=== PATIENT | female | born 1960 | race Caucasian/White ===

== ENCOUNTER → 2019-08-24 11:21 | Outpatient (CLI) | payer BC, SELFPAY ==
--- NOTE | ~2019-08-24 | XR_ITS ---
EXAMINATION: XR chest 2V EXAM DATE: 08/24/2019 11:34 INDICATION: Cough. TECHNIQUE: Frontal and lateral projections of the chest obtained and reviewed. There is no prior sunni dy for comparison. FINDINGS: The lungs are clear. There are no pleural effusions. The cardiomediastinal silhouette is within normal limits. There is no pneumothorax suspected. The bones and soft tissues are unremarkab le. IMPRESSION: No acute cardiopulmonary findings. Reviewed, dictated and finalized at location B. [employer] QUALITY METHODS SPECIALIST
== END ==
PROVIDERS: PCP Family Medicine; Visit Provider Nurse Practitioner Family
DX: R05 Cough (principal)
CPT/HCPCS: 71046

== ENCOUNTER 2019-09-20 17:28 | Emergency (ER) | payer BC, SELFPAY ==
--- NOTE | ~2019-09-20 | XR_ITS ---
EXAMINATION: XR foot LT min 3V EXAM DATE: 09/20/2019 17:52 INDICATION: No known recent injury provided at this time. Pain of the left foot, metatarsal. TECHNIQUE: Left foot dorsoplantar, lateral and oblique projections obtained and reviewed. There is n o prior study for comparison. FINDINGS: Left metatarsal bones unremarkable. No periosteal reaction or band of sclerosis to sugges t subacute stress fracture. There are no acute fractures or dislocations identified. There is no s ubcutaneous gas. The soft tissue is unremarkable. There are no radiopaque foreign bodies. There i s mild first MTP, polyarticular interphalangeal primary osteoarthritis. IMPRESSION: 1. XR foot LT min 3V exam without acute osseous findings. 2. Mild polyarticular osteoarthritis. Reviewed, dictated and finalized at location A.
[2019-09-20 17:35] VITALS: BP 151/64; PULSE 63; RESP 20; TEMP 37.2; O2SAT 99
--- NOTE | 2019-09-20 18:22 | ED.LOWEXIN ---
HPI - Extremity Injury (Lower) General Chief Complaint: Extremity Injury, Lower Stated Complaint: L/top foot pain/swollen Source: patient Mode of arrival: ambulatory Limitations: no limitations History of Present Illness HPI Narrative: Patient is a 59-year-old female who presents with left foot pain x1 week. She reports mild swelling, denies redness, denies known injury. She denies taking szis-sbg-byvfrdz medications for pain at this time. Reports increased pain over the past few days. MD complaint: other (Foot pain) Related Data Home Medications Medication Instructions Recorded Confirmed amlodipine 10 mg-benazepril 40 mg 1 cap PO DAILY 08/24/19 09/20/19 capsule calcium carbonate 600 mg(1,500 1 tablet PO DAILY 08/24/19 09/20/19 mg)-vitamin D3 800 unit chewable tablet hydrochlorothiazide 12.5 mg tablet 12.5 mg PO DAILY 08/24/19 09/20/19 levothyroxine 125 mcg tablet 125 mcg PO DAILY 08/24/19 09/20/19 pywcipwzcaik-srgeslos-ykiszxi-folic 1 tablet PO DAILY 08/24/19 09/20/19 acid 400 mcg-vit K1 20 mcg tablet rosuvastatin 10 mg tablet 10 mg PO DAILY 08/24/19 09/20/19 Allergies Allergy/AdvReac Type Severity Reaction Status Date / Time azithromycin AdvReac Intermediate GI pain Verified 09/20/19 17:40 Review of Systems Review of Systems: Narrative: CONSTITUTIONAL: Denies fever, chills, or sweats. EYES: Denies visual changes, redness, or discharge. ENT: Denies rhinorrhea, congestion, sore throat, or otalgia. CARDIOVASCULAR: Denies chest pain, palpitations, or edema. RESPIRATORY: Denies cough or dyspnea. GASTROINTESTINAL: Denies abdominal pain, nausea, vomiting, or diarrhea. GENITOURINARY: Denies dysuria or hematuria. SKIN: Denies rash or itching. MUSCULOSKELETAL: Denies back pain, reports left foot pain NEUROLOGIC: Denies headache, numbness, dizziness, or weakness. PSYCHIATRIC: Denies anxiety or depression. [facility] Past Medical History Medical History (Updated 09/20/19 @ 18:29 by DELORES Odonnell) Depression GERD (gastroesophageal reflux disease) HTN (hypertension) Hypercholesterolemia Hypothyroidism Sleep apnea Family History Family History Sibling Cerebrovascular accident Diabetes mellitus Mother Diabetes mellitus Hypertension Patient's mother is in good health, Onset Age: 83 Social History Social History Smoking status: Never smoker Alcohol intake: current Substance use: never Substance use type: does not use Exam Narrative: Exam Narrative: GENERAL: Well-appearing, well-nourished, and in no acute distress. HEAD: Normocephalic, atraumatic. EYES: EOMI. No redness or drainage. Conjunctiva are normal. ENT: Mucous membranes pink and moist. Nares clear. No rhinorrhea. TMs normal bilaterally. Throat normal. Uvula midline. NECK: AROM. Supple. No lymphadenopathy. CHEST: No respiratory distress. Clear to auscultation. HEART: Regular rate and rhythm. No murmur appreciated. Normal peripheral pulses. GI: Soft, nontender without rebound, or guarding. No distention. Bowel sounds normal in all quadrants. MUSCULOSKELETAL: No bony tenderness. EXTREMITIES: Normal range of motion. Mild edema to left foot and toes, point tenderness at base of toes. Osteoarthritis noted on x-ray SKIN: Warm, dry, no rash. NEURO: No focal deficits. Alert and oriented x3. Gait steady. PSYCH: Normal affect. No signs of depression or anxiety. Course Vital Signs Vital signs: Vital Signs Temperature 37.2 C 09/20/19 17:35 Pulse Rate 63 09/20/19 17:35 Respiratory Rate 20 09/20/19 17:35 Blood Pressure 151/64 H 09/20/19 17:35 Pulse Oximetry 99 09/20/19 17:35 Temperature 37.2 C 09/20/19 17:35 Pulse Rate 63 09/20/19 17:35 Respiratory Rate 20 09/20/19 17:35 Blood Pressure 151/64 H 09/20/19 17:35 Pulse Oximetry 99 09/20/19 17:35 MDM - Extremity Injury (Lo
== END 2019-09-20 18:30 | disposition home or self-care (01) ==
PROVIDERS: Emergency Provider Nurse Practitioner; PCP Family Medicine
DX: M19.072 Primary osteoarthritis, left ankle and foot (principal); F32.9 Major depressive disorder, single episode, unspecified; K21.9 Gastro-esophageal reflux disease without esophagitis; I10 Essential (primary) hypertension; E78.00 Pure hypercholesterolemia, unspecified; G47.30 Sleep apnea, unspecified
CPT/HCPCS: 73630; 99213; G0463

== ENCOUNTER → 2020-09-06 17:52 | Outpatient (CLI) | payer BC, SELFPAY ==
--- NOTE | ~2020-09-06 | DEXA_ITS ---
Bone Density Report Name: Robyn No Age: 60 Sex: Female Ethnicity: White Date of : 1960 Indication: postmenopausal; screening for osteoporosis; parental hip fracture; Referring Provider: Kathy Khan Study: Bone densitometry was performed. Exam Date: September 06, 2020 Accession number: [id number] Bone Density: Region BMD T-score Z-score Classification AP Spine (L1-L4) 1.032 -0.1 1.4 Normal Femoral Neck (Left) 0.756 -0.8 0.5 Normal Total Hip (Left) 0.905 -0.3 0.8 Normal Femoral Neck (Right) 0.689 -1.4 -0.1 Osteopenia Total Hip (Right) 0.881 -0.5 0.6 Normal Total Hip Mean 0.893 -0.4 0.7 Normal World Health Organization criteria for BMD impression classify patients as: Normal (T-score at or above -1.0), Osteopenia (T-score between -1.0 and -2.5), or Osteoporosis (T-score at or below -2.5). 10-year Fracture Risk(1): Major Osteoporotic Fracture 15% Hip Fracture 0.7% Reported Risk Factors: [place] (), Neck BMD=0.689, BMI=34.8, parental fracture (1) FRAX(R) Version 3.08. Fracture probability calculated for an untreated patient. Fracture probability may be lower if the patient has received treatment. Clinical Information Provided by Patient: Parent has had a hip fracture Has used the following medications: Calcium, SYNTHROID, MTV Patient maximum height was 63.5 Menopause Age: 45 No regular weight bearing exercise Does not regularly consume dairy products Drinks caffeinated beverages Onset of menses at age 12 Number of children 0 Impression: The patient has low bone mass, based on the Right Femoral Neck T-score. The patient has an estimated ten-year risk of hip fracture of 0.7% and an estimated ten-year risk of major fracture of 15%, based on the WHO FRAX algorithm. The patient has risk factors, including: parental hip fracture. Discussion: BONE DENSITY IS LOW AT ONE OR MORE SKELETAL SITES. This patient's lowest T-score is low at one or more skeletal sites. It meets the World Health Organization's (WHO) criteria for ?low bone mass? (T-score between -1.0 and -2.5). The patient's 10-year risk of fracture as calculated by FRAX is less than the threshold where pharmacological therapy is recommended by the National Osteoporosis Foundation (NOF). However, all treatment decisions require clinical judgment and consideration of individual patient factors, including patient preferences, comorbidities, previous drug use, risk factors not captured in the FRAX model (e.g., frailty, falls, vitamin D deficiency, increased bone turnover, interval significant decline in bone density) and possible under or overestimation of fracture risk by FRAX. The patient should follow a healthful lifestyle (good nutrition with adequate calcium and vitamin D, and appropriate weight-bearing exercise).
--- NOTE | ~2020-09-06 | MM_ITS ---
EXAMINATION: MM screening [facility] BI w tae HISTORY: Screening mammogram TECHNIQUE: Craniocaudal and mediolateral oblique 3-D tomosynthesis images were obtained and synthetic 2-D images were generated. CAD analysis was submitted and interpreted. COMPARISON: 05/03/2019, 01/02/2018 BREAST PARENCHYMAL COMPOSITION: The breasts are almost entirely fatty. FINDINGS: There is no evidence of suspicious mass, calcification, or architectural distortion to sugg est malignancy in either breast. There has been no suspicious interval change. IMPRESSION: 1. No mammographic evidence of malignancy. 2. Recommend routine screening mammography in one year. BI-RADS Category 1: Negative Reviewed, dictated and finalized at location A. ICAL LANGUAGES PROFESSOR
== END ==
PROVIDERS: Visit Provider Physician Assistant
DX: Z78.0 Asymptomatic menopausal state (principal); Z12.31 Encounter for screening mammogram for malignant neoplasm of breast; M85.851 Other specified disorders of bone density and structure, right thigh
CPT/HCPCS: 77063; 77067; 77080

== ENCOUNTER 2022-03-01 15:24 | Inpatient (IN) | payer BC, SELFPAY ==
--- NOTE | ~2022-03-01 | CT_ITS ---
EXAMINATION: CT abdomen pelvis w con DATE: 03/01/2022 18:25 INDICATION: Low abdominal pain. TECHNIQUE: Computed tomography (CT) of the abdomen and pelvis was performed with 100 mL Omnipaque 350 intravenous contrast. Automated exposure control and iterative reconstruction technique were employe d. The dose-length product was 790.75 mGy-cm. COMPARISON: None. FINDINGS: The visualized portions of the lung bases demonstrate mild atelectasis. No pleural effusion . The heart size is normal. No pericardial effusion. There is a small sliding hiatal hernia. The live r, gallbladder, spleen, pancreas, adrenal glands, and kidneys are normal. There is wall thickening of splenic flexure and descending colon with adjacent fat stranding, consistent with colitis. The appen liang is normal. There are no dilated loops of bowel. There is no significant stenosis of celiac axis, superior mesenteric artery, or the renal arteries. 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 There are no pathologically enlarged lymph nodes. There is no free in traperitoneal fluid. There is severe lumbar spondylosis. IMPRESSION: 1. Colitis involving the splenic flexure and descending colon, which may be ischemic colitis or infec tious colitis. Reviewed, dictated and finalized at location A. IMPRESSION: 1. Colitis involving the splenic flexure and descending colon, which may be isc hemic colitis or infectious colitis.
[2022-03-01 15:27] VITALS: BP 152/80; PULSE 76; RESP 18; TEMP 37; O2SAT 97
[2022-03-01 16:03] LABS: Basophils Absolute Auto 0.1 K/mm3 (0.0-0.1); Basophils Percent Auto 0.7 % (0.2-1.2); Eosinophils Absolute Auto 0.1 K/mm3 (0-0.3); Eosinophils Percent Auto 0.9 % (0-4.4); Hemoglobin 13.6 g/dL (12.0-15.0); Immature Granulocyte Absolute 0.02 K/mm3 (0.00-0.031); Immature Granulocyte Percent A 0.2 % (0-0.5); Lymphocytes Absolute Auto 1.84 K/mm3 (0.9-3.2); Lymphocytes Percent Auto 18.9 % (18.3-44.2); Mean Corpuscular HGB Conc 32.4 g/dl (32-36); Mean Corpuscular Volume 89.6 fl (80-100); Mean Platelet Volume 9.2 fl (7.4-10.4); Monocytes Absolute Auto 0.7 K/mm3 (0.1-0.6); Monocytes Percent Auto 6.7 % (2.6-8.5); Neutrophils Absolute Auto 7.1 K/mm3 (1.3-6.7); Neutrophils Percent Auto 72.6 % (45.5-73.1); Platelet Count Result 307 k/mm3 (150-375); Red Blood Count 4.69 M/mm3 (4.2-5.4); Red Cell Distribution Width 12.8 % (11.5-14.5); White Blood Count 9.7 K/mm3 (4.5-10.0)
[2022-03-01 16:13] LABS: Alanine Aminotransferase 24 U/L (6-35); Albumin Level 5.4 g/dL (3.5-5.1); Alkaline Phosphatase 101 U/L (38-126); Anion Gap 10 mmol/L (8-16); Aspartate Amino Transferase 36 U/L (14-36); Bilirubin,Total 0.6 mg/dL (0.2-1.3); Blood Urea Nitrogen 17 mg/dL (7-17); Calcium 9.7 mg/dL (8.4-10.2); Carbon Dioxide 32 mmol/L (22-30); Chloride 98 mmol/L (98-107); Estimated CRCL calculation 54 ml/min; Estimated Glomerular Filt Rate 56; Glucose 104 mg/dL (65-110); Lipase 107 U/L (23-300); Potassium 3.6 mmol/L (3.4-5.0); Sodium 140 mmol/L (137-145)
[2022-03-01 16:56] LABS: Appearance Urine Clear (Clear); Bilirubin Urine 1+ (Negative); Color Urine Yellow (Yellow); Glucose Urine UA Negative (Negative); Ketones Urine Negative (Negative); Leukocyte Esterase Ur Trace LEU/UL (Negative); Nitrate Urine Negative (Negative); Protein Urine 1+ mg/dL (Negative); Specific Grav Ur >= 1.030 (1.001-1.035); Urobilinogen Urine 0.2 mg/dL (<2.0); pH Urine 5.5 (5.0-9.0)
[2022-03-01 17:02] LABS: Bacteria Urine Trace /hpf; Mucus Urine Heavy /lpf; Squamous Epithelial Cell Urine Rare /hpf (Few)
[2022-03-01 17:04] LABS: Add Urine Microscopic? YES; Blood Urine Trace-Intact (Negative)
[2022-03-01 17:18] VITALS: PULSE 70; RESP 18
[2022-03-01 17:19] VITALS: BP 170/69; PULSE 71; RESP 11
--- NOTE | 2022-03-01 17:44 | ED.ABDPAIN ---
HPI - Abdominal Pain General Chief Complaint: Abdominal Pain Stated Complaint: abdominal pain, N/V, rectal bleeding Time Seen by Provider: 03/01/22 17:27 History of Present Illness HPI narrative: 61-year-old female states that since last night she has had abdominal pain, it was initially quite severe, in the periumbilical abdomen, felt like gas pains, then gradually improved, now mostly having pain in her lower abdomen. She did also notice that her bowel movements were bloody and mucousy. Has not had symptoms like this other than when she was a child. Had some nausea and vomiting and diaphoresis to when the pain started yesterday. Related Data Home Medications Medication Instructions Recorded Confirmed calcium carbonate 600 mg-vitamin 1 tablet PO DAILY 08/24/19 02/22/22 D3 20 mcg (800 unit) chewable tablet (Caltrate 600 plus D) ovshkvijmvwn-qouezfiz-jtfepkq-folic 1 tablet PO DAILY 08/24/19 02/22/22 acid 400 mcg-vit K1 20 mcg tablet (One-A-Day Women's 50 Plus) linaclotide 145 mcg capsule 145 mcg PO DAILY PRN Abdominal 03/01/22 (Linzess) Discomfort paroxetine HCl 10 mg tablet 10 mg PO QAM 03/01/22 Allergies Allergy/AdvReac Type Severity Reaction Status Date / Time azithromycin AdvReac Intermediate GI pain Verified 03/01/22 17:47 Review of Systems Review of Systems: CONST: No fever. HEENT: No sore throat C/V: No chest pain RESP: No cough GI: Reports abdominal pain, nausea : No dysuria. M/S: No joint pain. SKIN: No rash. NEURO: [No headache or focal numbness or weakness] PSYCH: [No depression] [facility] Past Medical History Medical History Depression GERD (gastroesophageal reflux disease) HTN (hypertension) Hypercholesterolemia Hypothyroidism Major depressive disorder, recurrent, moderate Sleep apnea Family History Family History Sibling Cerebrovascular accident Diabetes mellitus Mother Diabetes mellitus Hypertension Patient's mother is in good health, Onset Age: 83 Social History Social History Social History: Smoking status: Never smoker Second hand tobacco smoke exposure: No Alcohol intake: current Alcohol use details: social drinker Substance use: never Substance use type: does not use Gender identity (if verbalized by the patient): Female Sexual Orientation (if Verbalized by the Patient): Straight or Heterosexual Exam Narrative: EXAMINATION OF ORGAN SYSTEMS/BODY AREAS: Constitutional: Vital signs per nursing GENERAL:[No acute distress, non-toxic appearing.] HEAD: Normal with no signs of head trauma. EYES: EOMI, conjunctiva normal ENT: Hearing grossly intact LUNGS: Nonlabored breathing. HEART: [Regular rate and rhythm] ABD: [Soft], [nontender to palpation] RECTAL: Nontender, blood tinged mucus guaiac+ EXT: Normal range of motion SKIN: [No rashes or lesions.] NEURO: [Alert and oriented x 3. No gross focal sensory or strength deficits.] PSYCH: Normal affect Course Vital Signs Vital signs: Vital Signs Temperature 98.6 F 03/01/22 15:27 Pulse Rate 76 03/01/22 15:27 Respiratory Rate 18 03/01/22 15:27 Blood Pressure 152/80 H 03/01/22 15:27 Pulse Oximetry 97 03/01/22 15:27 Oxygen Delivery Room Air 03/01/22 15:27 Temperature 98.6 F 03/01/22 15:27 Pulse Rate 71 03/01/22 17:19 Respiratory Rate 11 L 03/01/22 17:19 Blood Pressure 170/69 H 03/01/22 17:19 Pulse Oximetry 97 03/01/22 15:27 Oxygen Delivery Room Air 03/01/22 15:27 MDM - Abdominal Pain MDM Narrative Medical decision making narrative: Electronic medical record was reviewed. Patient presented to the ED with complaint of [abdominal pain]. Vitals [were within acceptable limits]. Physical exam revealed [minimal tenderness to palpation her lower abdomen]. Based on the patient's history and physica
--- NOTE | 2022-03-01 17:46 | ECG_ITS ---
Measurements Intervals [place] Rate: 73 P: 46 WV: 175 QRS: 2 QRSD: 84 T: 44 QT: 387 QTc: 428 Interpretive Statements SINUS RHYTHM NONSPECIFIC ST CHANGES NO PREVIOUS ECG AVAILABLE FOR COMPARISON Electronically Signed On 03-02-2022 13:34:23 CDT by Brittany Carrillo M.D.
--- NOTE | 2022-03-01 19:17 | PC.NURSE ---
Bedside report given to SHANNON Baca
[2022-03-01] MEDS: SODIUM CHLORIDE 0.9% IV 1,000 ML 999 ML IV CONT (19:37)
[2022-03-01 19:38] VITALS: BP 126/62; PULSE 70; RESP 16; O2SAT 96
[2022-03-01 19:48] LABS: Lactic Acid Reflex 1.1 mmol/L (0.7-2.0)
[2022-03-01] MEDS: metroNIDAZOLE 500 MG/ISO 100ML 500 MG/100 ML BAG 100 MG IVPB (20:19)
[2022-03-01 21:19] VITALS: BP 164/67; PULSE 71; RESP 17; O2SAT 95
[2022-03-01 21:58] VITALS: BMI 35.6
[2022-03-01 22:00] VITALS: BP 160/62; PULSE 78; RESP 18; TEMP 37.5; O2SAT 95
--- NOTE | 2022-03-01 22:02 | ADMGEN ---
This patient, Robyn No, was admitted to [facility] Surg Room 313-01. Patient/family oriented to hospital policies and general routines including ID bracelet, bed and alarms, visiting hours, pain management, procedures, bathroom and other care routines, personal items, smoking policy, room service/diet, and visiting hours. Information on how to activate the Rapid Response Team has been discussed. Patient/Family are encouraged to report perceived risks to care and to ask questions if they do not understand what they are told or what they should do.
[2022-03-01 22:07] VITALS: BMI 35.4
--- NOTE | 2022-03-01 22:33 | PM.IMHP ---
H&P: HPI History of Present Illness Date/Time: 03/01/22 22:33 Chief Complaint: Abdominal pain and bloody stools Narrative: 61-year-old female with a past medical history of hypertension, hypothyroid, hyperlipidemia, depression and chronic constipation on Linzess who presented to the ER due to having bloody stools. The patient reports that on the evening of the she began having what she thought was gas pain center left upper quadrant. The pains were intense and became quite severe right before she had a large bowel movement. At the time of the bowel movement she did become markedly diaphoretic and felt lightheaded if she if she may pass out (but she did not). The bowel movement was normally formed but became diarrheal towards the end. That night there was no blood in her stool. However the next morning when she woke up she had 4 more bowel movements that were frankly bloody. She did not have any recurrence of the abdominal pain. She denies any prior episodes similar to this of abdominal pain. She does have chronic constipation for which she occasionally takes Linzess. She did eat some soup from the cafeteria at work. She is wondering if this may not be related to her symptoms. She denies any recent travel or exposure to contaminated water. Her last colonoscopy was in 2019 and was unremarkable. She denies any fevers or chills. She does have some increased urinary urgency for the last fiber 6 years but this is unchanged from baseline. Review of Systems Review of Systems: 12 systems were reviewed with pertinent positives and negatives per HPI. Except as documented in the HPI, all other systems were reviewed and are negative. [facility] Past Medical History Medical History (Updated 03/01/22 @ 22:42 by Michelle Eisenberg DO) Depression Essential hypertension GERD (gastroesophageal reflux disease) Hypothyroidism Major depressive disorder, recurrent, moderate Mixed hyperlipidemia Obstructive sleep apnea Polysomnogram 11/2018 demonstrated ?extremely severe obstructive sleep apnea treated with CPAP of 15 Surgical History Surgical History (Updated 03/02/22 @ 02:47 by Michelle Eisenberg DO) History of esophagogastroduodenoscopy (12/2016) Reflux esophagitis, gastritis Normal colonoscopy (09/2018) Family History Family History (Updated 03/02/22 @ 02:51 by Michelle Eisenberg DO) Sibling , 1 sister and her brother Cerebrovascular accident Diabetes mellitus Mother Diabetes mellitus Hypertension Unilateral renal agenesis End-stage renal disease on hemodialysis Father , At age 83 Dementia Sibling COPD (chronic obstructive pulmonary disease) Social History Social History Social History: Smoking status: Never smoker Second hand tobacco smoke exposure: No Alcohol intake: current Drinks per week: 1 Alcohol use details: social drinker Substance use: never Substance use type: does not use Gender identity (if verbalized by the patient): Female Sexual Orientation (if Verbalized by the Patient): Straight or Heterosexual Spiritual care concerns: No Comments She has 1 brother and 1 sister who of strokes. Her father in his 80s with a sudden collapse but had a history of dementia. Her mother is still living and is on hemodialysis due to unilateral kidney. She has 1 sister who is still living who has COPD. Meds Home Medications and Allergies Home Medications Medication Instructions Recorded Confirmed Type calcium carbonate 600 mg-vitamin 1 tablet PO DAILY 08/24/19 03/01/22 History D3 20 mcg (800 unit) chewable tablet (Caltrate 600 plus D) lrlbvesuhxuy-ygbxzzbf-kyuepih-folic 1 tablet PO DAILY 08/24/19 03/01/22 History acid 400 mcg-vit K1 20 mcg tablet (One-A-Day Women's 50 Plus) amlodipine 10 mg-benazepril 40 mg 1 cap PO DAILY 03/01/22 03/01/22 History capsule hydrochlorothiazide 12.
[2022-03-01] MEDS: LACTATED RINGERS 1,000 ML 125 ML IV CONT (23:30)
[2022-03-02] MEDS: metroNIDAZOLE 500 MG/ISO 100ML 500 MG/100 ML BAG 100 MG IVPB ×3 (03:14→21:57)
[2022-03-02 05:37] VITALS: BP 132/61; PULSE 65; RESP 17; TEMP 37.1; O2SAT 95
[2022-03-02] MEDS: LEVOTHYROXINE SODIUM 125 MCG TABLET PO (06:34)
[2022-03-02 06:39] VITALS: O2SAT 95
[2022-03-02 08:00] VITALS: PULSE 65; RESP 17; O2SAT 95
[2022-03-02] MEDS: LACTATED RINGERS 1,000 ML 125 ML IV CONT (09:15)
[2022-03-02] MEDS: PARoxetine 20 MG TABLET PO (09:17)
[2022-03-02] MEDS: lisinopriL 20 MG TABLET 40 MG PO (09:18)
[2022-03-02] MEDS: hydroCHLOROthiazide 12.5 MG CAPSULE PO (09:18)
[2022-03-02] MEDS: ROSUVASTATIN 10 MG TABLET PO (09:18)
[2022-03-02] MEDS: amLODIPine BESYLATE 5 MG TABLET 10 MG PO (09:18)
--- NOTE | 2022-03-02 11:15 | PM.IMPN ---
Progress Note: A&P Assessment and Plan (1) Acute colitis: Code(s): K52.9 - Noninfective gastroenteritis and colitis, unspecified Status: Acute Assessment and Plan: CT of the abd/pel shows infectious vs ischemic colitis Still having some bloody stools Currently on PPI Continue Levaquin and Flagyl Continue clear liquids GS consulted thank you for your help Labs appear stable Lactic 1.1 Seems more infectious over ischemic (2) Obstructive sleep apnea: Code(s): G47.33 - Obstructive sleep apnea (adult) (pediatric) Status: Acute Assessment and Plan: CPAP has been ordered with pressure of 15. (3) Hypothyroidism: Code(s): E03.9 - Hypothyroidism, unspecified Status: Acute Assessment and Plan: Continue levothyroxine for now TSH 1.30 (4) HTN (hypertension): Code(s): I10 - Essential (primary) hypertension Status: Acute Assessment and Plan: BP stable Currently 132/61 Continue home medications Trend BP Adjust therapy as indicated Time Spent With Patient Time with patient: Greater than 35 minutes Subjective Date/time seen: 03/02/225 Interval history: 03/02/221114 Patient was lying in bed she seems to be doing okay. She stated that she did have 1 episode of melena which was blood clots she stated that she only had 1 episode today. She denies any chest pain, shortness breath, nausea, vomiting, diarrhea, constipation and weakness or fatigue. 03/01/22? 22:33 61-year-old female with a past medical history of hypertension, hypothyroid, hyperlipidemia, depression and chronic constipation on Linzess who presented to the ER due to having bloody stools.? The patient reports that on the evening of the she began having what she thought was gas pain center left upper quadrant.? The pains were intense and became quite severe right before she had a large bowel movement.? At the time of the bowel movement she did become markedly diaphoretic and felt lightheaded if she if she may pass out (but she did not).? The bowel movement was normally formed but became diarrheal towards the end.? That night there was no blood in her stool.? However the next morning when she woke up she had 4 more bowel movements that were frankly bloody.? She did not have any recurrence of the abdominal pain.? She denies any prior episodes similar to this of abdominal pain.? She does have chronic constipation for which she occasionally takes Linzess.? She did eat some soup from the cafeteria at work.? She is wondering if this may not be related to her symptoms.? She denies any recent travel or exposure to contaminated water.? Her last colonoscopy was in 2019 and was unremarkable.? She denies any fevers or chills.? She does have some increased urinary urgency for the last fiber 6 years but this is unchanged from baseline. Review of Systems Review of Systems: All systems reviewed & are unremarkable except as noted in HPI and below Exam Const: General: cooperative, healthy appearing, no acute distress, well developed, alert and awake Nutritional Appearance: well nourished Orientation/consciousness: patient oriented x3 Limitations: no limitations HENMT: Head: normal to inspection Ears: hearing grossly normal bilaterally General nose exam: Normal external nose present Mouth: Yes Normal oral and palatal mucosa present, Yes lip normal and Yes tongue normal Teeth and gingiva: abnormal tooth and associated gingiva and poor dentition Eyes: General: appearance normal, both eyes and all related structures Neck: Neck: normal visual inspection, full ROM, trachea midline and supple Chest: Chest palpation & inspection: normal inspection of the chest Resp: Effort & Inspection: normal respiratory effort and able to speak in complete sentences Auscultation: clear to auscultation bilaterally Cardio: Jugular venous distension: no JVD Rate: re
[2022-03-02 13:58] VITALS: BP 126/58; PULSE 66; RESP 20; TEMP 36.3; O2SAT 95
[2022-03-02 14:16] LABS: Basophils Absolute Auto 0.1 K/mm3 (0.0-0.1); Basophils Percent Auto 0.8 % (0.2-1.2); Eosinophils Absolute Auto 0.2 K/mm3 (0-0.3); Hematocrit 36.3 % (37.0-47.0); Hemoglobin 11.7 g/dL (12.0-15.0); Immature Granulocyte Absolute 0.03 K/mm3 (0.00-0.031); Immature Granulocyte Percent A 0.4 % (0-0.5); Lymphocytes Absolute Auto 1.67 K/mm3 (0.9-3.2); Lymphocytes Percent Auto 22.1 % (18.3-44.2); Mean Corpuscular HGB Conc 32.2 g/dl (32-36); Mean Corpuscular Volume 90.1 fl (80-100); Mean Platelet Volume 9.5 fl (7.4-10.4); Monocytes Absolute Auto 0.6 K/mm3 (0.1-0.6); Monocytes Percent Auto 8.4 % (2.6-8.5); Neutrophils Percent Auto 66.3 % (45.5-73.1); Platelet Count Result 268 k/mm3 (150-375); Red Blood Count 4.03 M/mm3 (4.2-5.4); Red Cell Distribution Width 12.7 % (11.5-14.5); White Blood Count 7.5 K/mm3 (4.5-10.0)
[2022-03-02 14:45] LABS: Alanine Aminotransferase 20 U/L (6-35); Albumin Level 4.2 g/dL (3.5-5.1); Alkaline Phosphatase 80 U/L (38-126); Anion Gap 9 mmol/L (8-16); Aspartate Amino Transferase 27 U/L (14-36); Bilirubin,Total 0.5 mg/dL (0.2-1.3); Blood Urea Nitrogen 9 mg/dL (7-17); Calcium 8.7 mg/dL (8.4-10.2); Carbon Dioxide 28 mmol/L (22-30); Chloride 104 mmol/L (98-107); Estimated CRCL calculation 67 ml/min; Estimated Glomerular Filt Rate > 60; Glucose 91 mg/dL (65-110); Potassium 3.4 mmol/L (3.4-5.0); Sodium 141 mmol/L (137-145)
[2022-03-02 21:40] VITALS: BP 139/56; PULSE 61; RESP 18; TEMP 36.3; O2SAT 93
[2022-03-02 22:25] VITALS: O2SAT 94
[2022-03-03] MEDS: LACTATED RINGERS 1,000 ML 125 ML IV CONT (01:10)
[2022-03-03] MEDS: metroNIDAZOLE 500 MG/ISO 100ML 500 MG/100 ML BAG 100 MG IVPB ×3 (03:28→17:35)
[2022-03-03 05:22] VITALS: BP 123/49; PULSE 57; RESP 18; TEMP 36.6; O2SAT 94
[2022-03-03] MEDS: LEVOTHYROXINE SODIUM 125 MCG TABLET PO (06:52)
[2022-03-03] MEDS: PARoxetine 20 MG TABLET PO (08:51)
[2022-03-03] MEDS: ROSUVASTATIN 10 MG TABLET PO (08:51)
--- NOTE | 2022-03-03 11:00 | PM.DS ---
DS: Admitting Diagnosis Discharge Date 03/03/22 1100 Admitting Diagnosis Colitis DS: Discharge Diagnosis Discharge Diagnosis (1) Acute colitis: Code(s): K52.9 - Noninfective gastroenteritis and colitis, unspecified Status: Acute Assessment and Plan: CT of the abd/pel shows infectious vs ischemic colitis Still having some bloody stools Currently on PPI Continue Levaquin and Flagyl Continue clear liquids GS consulted thank you for your help Labs appear stable Lactic 1.1 Seems more infectious over ischemic (2) Obstructive sleep apnea: Code(s): G47.33 - Obstructive sleep apnea (adult) (pediatric) Status: Acute Assessment and Plan: CPAP has been ordered with pressure of 15. (3) Hypothyroidism: Code(s): E03.9 - Hypothyroidism, unspecified Status: Acute Assessment and Plan: Continue levothyroxine for now TSH 1.30 (4) HTN (hypertension): Code(s): I10 - Essential (primary) hypertension Status: Acute Assessment and Plan: BP stable Currently 132/61 Continue home medications Trend BP Adjust therapy as indicated DS: Summary Hospital Course Hospital Course: Patient is a 61-year-old female with a past medical history of hypothyroidism, hypertension, GERD, hyperlipidemia who presented to the ED with complaints bloody stools. CT of the abd/pelvis showed infectious vs ischemic colitis. Patient was started on IV flagyl and levaquin. Labs have been stable and have remained stable throughout the stay. She was hydrated with IV fluids and she a diet was started which she was able to tolerate. She is currently feeling better and is ready to go home. She was able to tolerate a bland diet. She denies any chest pain, shortness of breath, nausea, vomiting, diarrhea, constipation, weakness or fatigue. She is stable per labs and vital signs. Status at Discharge Functional status at discharge: independent ambulation Overall status at discharge: patient is progressing back to baseline Time Spent with Patient Time attestation: Total time spent providing and/or coordinating discharge services: 36 minutes Time spent: Greater than 30 minutes Specific discharge activities: Diagnostic testing, chart review, developing a treatment plan, education, care coordination documentation, physical exam, result review Exam Const: General: cooperative, healthy appearing, no acute distress, well developed, alert and awake Nutritional Appearance: well nourished Orientation/consciousness: patient oriented x3 Limitations: no limitations Other: Obese, no acute distress, appears stated age HENMT: Head: normal to inspection Ears: hearing grossly normal bilaterally General nose exam: Normal external nose present Mouth: Yes Normal oral and palatal mucosa present, Yes lip normal and Yes tongue normal Teeth and gingiva: abnormal tooth and associated gingiva and poor dentition Other: Mucous membranes are tacky, no oral pharyngeal erythema, crowded posterior oropharynx Eyes: General: appearance normal, both eyes and all related structures Other: Pupils are equal and reactive, no scleral icterus, no conjunctival pallor Neck: Neck: normal visual inspection, full ROM, trachea midline and supple Other: Large neck circumference, no JVD Chest: Chest palpation & inspection: normal inspection of the chest Resp: Effort & Inspection: normal respiratory effort and able to speak in complete sentences Auscultation: clear to auscultation bilaterally Other: Clear to auscultation bilaterally, no increased work of breathing Cardio: Jugular venous distension: no JVD Rate: regular rate Rhythm: regular rhythm Heart sounds: S1 normal heart sound present and S2 normal heart sound present Peripheral pulses: Peripheral pulses 2+ throughout Other: Regular rate, regular rhythm, 2+ bilateral radial pedal pulses GI: Inspection: normal to inspe
--- NOTE | 2022-03-03 13:42 | PM.CNGS ---
Assessment and Plan Assessment and plan (1) Acute colitis: Code(s): K52.9 - Noninfective gastroenteritis and colitis, unspecified Status: Acute Assessment and Plan: colitis evidenced on CT scan and associated with some bloody stools which have resolved. Pain is better with antibiotics as well. Recommend continuing oral antibiotics to complete a week worth of treatment. Okay from my perspective to discharge. Can follow up with primary care physician. No surgery indicated at this point. History of Present Illness Consult details Consult date: 03/03/22 Reason for consult: abdominal pain Requesting physician: Kiara Vang MD Narrative: Patient is a 61-year-old woman who was at home with her , 02/28/2022. About 930 she noticed left upper quadrant pain. She thought it was gas initially but it persisted. She went and tried to move her bowels. The pain then got excruciatingly severe. She almost passed out and was diaphoretic. She had a bowel movement which was essentially normal and noticed some improvement of the pain. Her evening improved from there. She went to bed. She got up in the morning with no pain. She went to work and while at work had a large bloody stool. This was susana blood with clots. She had 2 or 3 other smaller bloody stools as well. She stated work until the early afternoon and then came into the emergency room Friday. Evaluation there included a CT scan which showed some evidence of colitis in the splenic flexure and proximal descending colon. The CT did not show any significant mesenteric vascular atherosclerosis. The inferior mesenteric artery did appear to be partially narrowed. She was admitted to the hospital and had 1 more small bloody stool after admission. She has had none since and has also not had any further abdominal pain. She has been on IV Zosyn antibiotics. Hemoglobin yesterday was 11.7. She feels good now and would like to go home. Review of Systems Review of Systems: All systems reviewed & are unremarkable except as noted in HPI and below ( HPI and those items noted below) Constitutional: Constitutional: Reports as per HPI, Denies anorexia, Denies chills, Denies fever(s), Denies night sweats and Denies poor appetite Cardiovascular: Cardiovascular: Denies chest pain, Denies diaphoresis, Denies dyspnea and Denies paroxysmal nocturnal dyspnea Respiratory: Respiratory: Denies chest congestion, Denies cough and Denies dyspnea Gastrointestinal: Gastrointestinal: Reports as per HPI, Reports abdominal pain, Reports hematochezia, Denies nausea and Denies vomiting Integumentary/Breasts: Skin/Breast: Denies lesions and Denies rash [facility] Past Medical History Medical History (Updated 03/01/22 @ 22:42 by Michelle Eisenberg DO) Depression Essential hypertension GERD (gastroesophageal reflux disease) Hypothyroidism Major depressive disorder, recurrent, moderate Mixed hyperlipidemia Obstructive sleep apnea Polysomnogram 11/2018 demonstrated ?extremely severe obstructive sleep apnea treated with CPAP of 15 Surgical History Surgical History (Updated 03/02/22 @ 02:47 by Michelle Eisenberg DO) History of esophagogastroduodenoscopy (12/2016) Reflux esophagitis, gastritis Normal colonoscopy (09/2018) Family History Family History (Updated 03/02/22 @ 02:51 by Michelle Eisenberg DO) Sibling , 1 sister and her brother Cerebrovascular accident Diabetes mellitus Mother Diabetes mellitus Hypertension Unilateral renal agenesis End-stage renal disease on hemodialysis Father , At age 83 Dementia Sibling COPD (chronic obstructive pulmonary disease) Social History Social History (Updated 03/02/22 @ 02:57 by Michelle Eisenberg DO) Social History: She has been for 13 years. She does not have any biologic children. Code status: Full code Surrogate decision maker: Smoking status: Never smoker Second
[2022-03-03 14:00] VITALS: BP 147/64; PULSE 59; RESP 18; TEMP 36.2; O2SAT 94
== END 2022-03-03 19:00 | disposition home or self-care (01) | DRG 392 ==
LOC: ANHED 19:05 → ANH3MEDSUR 21:10
PROVIDERS: Admitting Provider Internal Medicine; Emergency Provider Emergency Medicine; PCP Family Medicine; Visit Provider Nurse Practitioner
DX: A09 Infectious gastroenteritis and colitis, unspecified (principal); G47.33 Obstructive sleep apnea (adult) (pediatric); E03.9 Hypothyroidism, unspecified; I10 Essential (primary) hypertension; K21.9 Gastro-esophageal reflux disease without esophagitis; F32.9 Major depressive disorder, single episode, unspecified; E78.2 Mixed hyperlipidemia; K59.09 Other constipation; E66.9 Obesity, unspecified; Z68.35 Body mass index [BMI] 35.0-35.9, adult
CPT/HCPCS: 36415; 74177; 80053; 81001; 83605; 83690; 85025; 87086; 87088; 93005; 96361; 96365; 96366; 96367; 99285; A9270; G0378; J0696; J1956; J7030; J7120; Q9967

== ENCOUNTER → 2022-03-12 15:05 | Outpatient (CLI) | payer BC, SELFPAY ==
--- NOTE | ~2022-03-12 | MM_ITS ---
EXAMINATION: MM screening [facility] BI w tae HISTORY: Screening mammogram TECHNIQUE: Craniocaudal and mediolateral oblique 3-D tomosynthesis images were obtained and synthetic 2-D images were generated. CAD analysis was submitted and interpreted. COMPARISON: 09/06/2020, 05/03/2019 BREAST PARENCHYMAL COMPOSITION: The breasts are almost entirely fatty. FINDINGS: RIGHT BREAST: An asymmetry is present in the far posterior third of the breast in line with the nippl e axis on the mediolateral oblique view. LEFT BREAST: There is no suspicious mass, calcification, or architectural distortion to suggest malig liana. There has been no significant interval change. IMPRESSION: 1. Right breast asymmetry. 2. Additional mammographic views and possible breast ultrasound are recommended. BI-RADS Category 0: Incomplete: Needs additional imaging evaluation. Reviewed, dictated and finalized at location A. IMPRESSION: 1. Right breast asymmetry. 2. Additional mammographic views and possible breast ultrasound are recommended . BI-RADS Category 0: Incomplete: Needs additional imaging evaluation.
== END ==
PROVIDERS: PCP Family Medicine; Visit Provider Family Medicine
DX: Z12.31 Encounter for screening mammogram for malignant neoplasm of breast (principal); R92.8 Other abnormal and inconclusive findings on diagnostic imaging of breast
CPT/HCPCS: 77063; 77067

== ENCOUNTER → 2022-03-27 08:38 | Outpatient (CLI) | payer BC, SELFPAY ==
--- NOTE | ~2022-03-27 | MMUS_ITS ---
EXAMINATION: MM diagnostic balwinder RT w tae, US breast RT limited HISTORY: Right breast asymmetry reported on 03/12/2022 screening mammogram TECHNIQUE: Additional 3-D tomosynthesis images of the right breast were performed and synthetic 2-D i mages were generated. CAD analysis was submitted and interpreted. High resolution targeted posterior lower outer quadrant right breast ultrasound was performed. COMPARISON: 03/12/2022, 09/02/2020, 05/03/2019, 01/02/2018 bilateral screening mammogram examinations FINDINGS: MAMMOGRAPHIC FINDINGS: There is an irregular up to approximately 3 mm wide approximately 9 mm long density in the very poste rior mid to lower outer right breast. ULTRASOUND: Real-time imaging including second look was performed at the lower outer quadrant of the right breast . No suspicious mass or shadowing or any cyst or other significant sonographic finding is noted. No s onographic correlate for the mammographic finding is detected. IMPRESSION: 1. Suspicious approximately 3 x 9 mm irregular mammographic opacity in the posterior mid to lower out er right breast, without sonographic correlate 2. Mammographically guided preoperative wire localization of this mammographic density is recommended , with surgical excision BI-RADS category 4, suspicious findings. Dr. Calhoun telephoned the report and surgical biopsy recommendation on 03/27/2022 at 1010 hours to Haylie General Foreman for Dr. Rivers. Reviewed, dictated and finalized at location A. IMPRESSION: 1. Suspicious approximately 3 x 9 mm irregular mammographic opacity in the post erior mid to lower outer right breast, without sonographic correlate 2. Mammographically guided preoperative wire localization of this mammographic density is recommended, with surgical excision BI-RADS category 4, suspicious findings. Dr. Calhoun telephoned the report and surgical biopsy recommendation on 03/27/2022 at 1010 hours to Haylie General Foreman for Dr. Rivers. IMPRESSION: 1. Suspicious approximately 3 x 9 mm irregular mammographic opacity in the post erior mid to lower outer right breast, without sonographic correlate 2. Mammographically guided preoperative wire localization of this mammographic density is recommended, with surgical excision BI-RADS category 4, suspicious findings. Dr. Calhoun telephoned the report and surgical biopsy recommendation on 03/27/2022 at 1010 hours to Haylie, General Foreman for Dr. Rivers.
== END ==
PROVIDERS: PCP Family Medicine; Visit Provider Physician Assistant
DX: R92.8 Other abnormal and inconclusive findings on diagnostic imaging of breast (principal)
CPT/HCPCS: 76642; 77061; 77065; G0279

== ENCOUNTER 2022-05-08 01:21 | Day surgery (SDC) | payer BC, SELFPAY ==
[2022-05-02 15:20] VITALS: BMI 34.5
--- NOTE | 2022-05-02 15:27 | SUR.PREOP ---
Report to the Outpatient Waiting Room, entrance under the green pavilion located off [facility], at time 7:00 on date 05/08/22. Planned Procedure Time: 1000. Time changes happen often and if your time is changed the preop area will call you the afternoon before. - You and your visitor will be asked to self-screen and do not enter if you have any COVID symptoms. - We encourage only one visitor and NO visitors under age 16 are allowed at this time. Your visitor will receive communication by the phone number that is given day of service. - The patient visitor is requested to social distance or may leave the building when not with patient due to restrictions. - A mask is required within the hospital. Patients may have clear liquids (water, carbonated beverages, clear teas, apple juice) until 3 hours prior to surgery with a maximum of 20 ounces. - No food from midnight until time of surgery - Infants may have breast milk until 4 hours before surgery, formula 6 hours prior to surgery. - Children will be allowed to drink immediately following surgery. If applicable, please bring a bottle or sippy cup to assist with drinking. Juice, water, soda, and popsicles are readily available. For infants on formula, please bring formula the day of surgery. Pacifiers are allowed. Take the following medications with a SIP of water the morning of surgery: levothyroxine, paroxetine Medications to discontinue per physician: HCTZ, rosuvastatin, amlodipine/benazepril - hold morning of surgery multivitamin/calcium - 3 days prior to procedure Date to take last dose__ Please no make-up, nail tongan, hairspray, perfume, deodorant, or body powder the day of surgery. No jewelry (including any body piercings) or valuables the day of surgery, leave them at home. Please take a shower or bath the night before, or the morning of, surgery with an antibacterial soap. Wear comfortable, loose fitting clothing. Children are encouraged to wear pajamas. - Jewelry must be removed prior to entering the operating room. Rings and piercings that are not removed may be cut off. - The hospital will not accept responsibility for valuables. - Please leave all valuables, including medications, at home the day of surgery. If you are going home after surgery, a licensed intermodal truck driver must drive you home. - NO public transportation without another adult. - We recommend that an adult stay with you for 24 hours following discharge. - We also recommend that you do not drive, make important decision, drink alcoholic beverages, or take any drugs that were not prescribed by your health care provider for at least 24 hours after your discharge time. For Pediatric surgeries, we recommend two adults accompany the child home. Follow any additional instructions given to you from your surgeon. If you or anyone in your household have experienced Covid symptoms in the past week, please notify your surgeon or the nurse liaison at the phone number below for possible testing. Telephone instructions given to _patient_and asked if any additional questions and then verbalized understanding. Patient advised to call surgeon office or pre surgery nurse liaison [phone] if any additional questions.
--- NOTE | ~2022-05-08 | MM_ITS ---
Consultation: Multiple attempts were made to localize the lesion of interest in the lower outer aspec t of the right breast utilizing different views without success. Stereotactic biopsy was subsequently canceled. Reviewed, dictated and finalized at location B.
[2022-05-08 07:16] VITALS: BP 143/57; PULSE 61; RESP 16; TEMP 36; O2SAT 98
--- NOTE | 2022-05-08 07:59 | SUR.PREOP ---
0728 [facility] CALLED AND MADE AWARE THAT PT WAS READY, [facility] STATES RADIOLOGIST NEEDS TO SPEAK WITH EHSAN DAVILA PRIOR TO PT GOING TO [facility]. 0793 RADIOLOGIST TO COME SPEAK TO PT.
--- NOTE | 2022-05-08 09:30 | WPDANESEPPF ---
Anes - Initial Pre Proc Eval Procedure: Operation Date: 05/08/22 10:00 Proposed Procedures p Right Breast Lumpectomy Ultrasound and /or Mammogram Guided Needle Localization - Júnior Garcia MD Date/Time: 05/08/22 09:30 Surgeon: Júnior Garcia MD Pre Op Diagnosis: abnormal breast imaging Patient Data Age: 61 Gender: F Height: 1.6 m Weight: 90.65 kg Last Vital Signs Temp 36.0 C L 05/08/22 07:16 Pulse 61 05/08/22 07:16 Resp 16 05/08/22 07:16 BP 143/57 H 05/08/22 07:16 Pulse Ox 98 05/08/22 07:16 O2 Del Method Room Air 05/08/22 07:16 Allergies Allergy/AdvReac Type Severity Reaction Status Date / Time azithromycin AdvReac Intermediate GI pain Verified 04/08/22 09:30 Home Medications Medication Instructions Recorded Confirmed Type belkzcohcrxv-oruotsch-aicpaqu-folic 1 tablet PO DAILY 08/24/19 05/08/22 History acid 400 mcg-vit K1 20 mcg tablet (One-A-Day Women's 50 Plus) amlodipine 10 mg-benazepril 40 mg 1 cap PO DAILY 05/02/22 05/08/22 History capsule hydrochlorothiazide 12.5 mg tablet 12.5 mg PO DAILY 05/02/22 05/08/22 History paroxetine HCl 20 mg tablet 20 mg PO DAILY 05/02/22 05/08/22 History rosuvastatin 10 mg tablet 10 mg PO DAILY 05/02/22 05/08/22 History levothyroxine 125 mcg tablet See Rx Instructions .Route 05/06/22 05/08/22 Rx (Synthroid) .COMPLEX #90 tabs Patient hx anesthesia problems: none Family hx anesthesia problems: none Results Review: All pre-operative results and documents have been reviewed as part of the pre-operative evaluation. [facility] Past Medical History Medical History Depression Essential hypertension GERD (gastroesophageal reflux disease) Hypothyroidism Major depressive disorder, recurrent, moderate Mixed hyperlipidemia Obstructive sleep apnea Polysomnogram 11/2018 demonstrated ?extremely severe obstructive sleep apnea treated with CPAP of 15 Surgical History Surgical History H/O sinus surgery History of esophagogastroduodenoscopy (12/2016) Reflux esophagitis, gastritis History of tonsillectomy Normal colonoscopy (09/2018) Family History Family History Sibling , 1 sister and her brother Cerebrovascular accident Diabetes mellitus Mother Diabetes mellitus Hypertension Unilateral renal agenesis End-stage renal disease on hemodialysis Father , At age 83 Dementia Sibling COPD (chronic obstructive pulmonary disease) Unknown Hypertension Social History Social History Social History: She has been for 13 years. She does not have any biologic children. Code status: Full code Surrogate decision maker: Caffeine use: drinks Pepsi daily Smoking status: Never smoker Second hand tobacco smoke exposure: No Alcohol intake: current Alcohol use details: She drinks 1 or 2 alcoholic beverages a month. Substance use: never Substance use type: does not use Living arrangements: with family Additional living arrangements comments: She lives at home with her . They have been since approximately 2010. Additional occupation/education comments: She works at [employer]. Gender identity (if verbalized by the patient): Female Sexual Orientation (if Verbalized by the Patient): Straight or Heterosexual Spiritual care concerns: No Anes - Eval Final PreProcedure Day of Procedure 05/08/22 09:30 Patient weight: obese Heart: regular rate and rhythm Lungs: clear to auscultation Airway: Mallampati scale class II Neurological: alert and oriented Last oral intake: >/= 8 hours ASA classification: III Emergent: no Anesthetic plan: proceed Anesthesia type and monitoring: general LMA and standard monitori
--- NOTE | 2022-05-08 10:06 | WPDPN ---
Progress Note: A&P Assessment and Plan (1) Abnormal finding on breast imaging: Code(s): R92.8 - Other abnormal and inconclusive findings on diagnostic imaging of breast Status: Acute Plan Discharge from surgery to proceed to stereotactic biopsy. Subjective Date/time seen: 05/08/22 10:06 Interval history: Dr. Lopez called me and after review of her mammograms, it looks as though this lesion may be able to be stereotactically biopsied. In fact, it has been arranged that Dr. Johnson will work her in to attempt the stereotactic biopsy today. Dr. Lopez has discussed this with the patient. I also spoke with her regarding the advantages of minimally invasive needle biopsy. She understands and is in agreement with this plan. For that reason, her wire localization, excisional biopsy is canceled. Patient will be discharged from preop, OP surgery to proceed to the radiology department for stereotactic biopsy. Objective Data Vital Signs Vital Signs: Vital Signs - 24 hr 05/08/22 07:16 Temperature 36.0 C L Pulse Rate 61 Respiratory Rate 16 Blood Pressure 143/57 H Pulse Oximetry 98 Oxygen Delivery Room Air Meds/Results Medications: Active Medications Generic Name Dose Route Start Last Admin Trade Name Freq PRN Reason Stop Dose Admin Fentanyl Citrate 25 mcg 05/08/22 08:39 Fentanyl Citrate Inj (*Crx) 100 Mcg/2 Ml Vial IV PUSH Q2M PRN Pain Lactated Ringer's 1,000 mls @ 30 mls/hr 05/08/22 06:25 Lr - Lactated Ringers Iv IV CONT .Q24H HAMELT Lactated Ringer's 1,000 mls @ 30 mls/hr 05/08/22 08:40 Lr - Lactated Ringers Iv IV CONT .Q24H HAMLET Ondansetron HCl 4 mg 05/08/22 08:39 Ondansetron Inj 4 Mg/2 Ml Vial IV PUSH ONCE PRN Nausea Oxycodone HCl 5 mg 05/08/22 08:39 Oxycodone Hcl (*Crx) 5 Mg Tab Ir PO ONCE PRN Pain
--- NOTE | 2022-05-08 10:31 | SUR.PREOP ---
1000 DR MOSER HAS SPOKEN TO PATIENT.
== END 2022-05-08 10:25 | disposition home or self-care (01) ==
PROVIDERS: PCP Family Medicine; Visit Provider Surgery
DX: R92.8 Other abnormal and inconclusive findings on diagnostic imaging of breast (principal); Z53.8 Procedure and treatment not carried out for other reasons
CPT/HCPCS: 99199; 99212; G0463

== ENCOUNTER 2022-07-14 10:41 | Emergency (ER) | payer BC, SELFPAY ==
--- NOTE | ~2022-07-14 | XR_ITS ---
EXAMINATION: XR shoulder RT min 2V DATE: 07/14/2022 11:50 INDICATION: Right humerus fracture. TECHNIQUE: 4 views of right shoulder were obtained. COMPARISON: Right humerus radiographs 07/14/2022 FINDINGS: There is a transverse fracture of surgical neck of proximal right humerus. The distal fract ure fragment demonstrates impaction, 2 mm medial displacement, and 13 degrees lateral angulation. The re is mild osteoarthritis of acromioclavicular joint. Glenohumeral joint is normal. IMPRESSION: 1. Transverse fracture of surgical neck of proximal right humerus. Reviewed, dictated and finalized at location A. PREPARATION SUPERVISOR
--- NOTE | ~2022-07-14 | XR_ITS ---
EXAMINATION: XR humerus RT DATE: 07/14/2022 11:23 INDICATION: Right humerus pain. Fall. TECHNIQUE: 2 views of right humerus were obtained. COMPARISON: None. FINDINGS: There is a transverse fracture at the surgical neck of proximal right humerus. The distal f racture fragment demonstrates impaction and 2 mm medial displacement. There are enthesophytes at medi al and lateral humeral epicondyles. Joint spaces are normal. IMPRESSION: 1. Transverse fracture of surgical neck of proximal right humerus. Consider shoulder radiographs. Reviewed, dictated and finalized at location A. ICATION DEVELOPMENT PROJECT MANAGER IMPRESSION: 1. Transverse fracture of surgical neck of proximal right humerus. Consider jeanette ulder radiographs.
[2022-07-14 11:04] VITALS: BP 106/53; PULSE 53; RESP 18; TEMP 36.2; O2SAT 98
--- NOTE | 2022-07-14 11:07 | ED.FALL ---
HPI - Fall General Chief Complaint: Extremity Injury, Upper Stated Complaint: fall/rt shoulder injury Time Seen by Provider: 07/14/22 11:07 Source: patient Mode of arrival: ambulatory Limitations: no limitations History of Present Illness HPI Narrative: 61-year-old female presents with complaint of pain to right upper arm. Reports that she tripped while walking in [facility] and fell Forward onto sidewalk. did not hit head. No LOC. Was able to get up with help of her . Patient is tearful. Did not take any pain medication prior to arrival. All systems reviewed and negative except as noted above. Related Data Home Medications Medication Instructions Recorded Confirmed xdtvhlglnund-rogfnyqr-yrsmyil-folic 1 tablet PO DAILY 08/24/19 07/14/22 acid 400 mcg-vit K1 20 mcg tablet (One-A-Day Women's 50 Plus) amlodipine 10 mg-benazepril 40 mg 1 cap PO DAILY 05/02/22 07/14/22 capsule hydrochlorothiazide 12.5 mg tablet 12.5 mg PO DAILY 05/02/22 07/14/22 rosuvastatin 10 mg tablet 10 mg PO DAILY 05/02/22 07/14/22 Allergies Allergy/AdvReac Type Severity Reaction Status Date / Time azithromycin AdvReac Intermediate GI pain Verified 07/14/22 11:35 Review of Systems Review of Systems: CONSTITUTIONAL: Denies fever, chills, or sweats. EYES: Denies visual changes, redness, or discharge. ENT: Denies rhinorrhea, congestion, sore throat, or otalgia. CARDIOVASCULAR: Denies chest pain, palpitations, or edema. RESPIRATORY: Denies cough or dyspnea. GASTROINTESTINAL: Denies abdominal pain, nausea, vomiting, or diarrhea. GENITOURINARY: Denies dysuria or hematuria. SKIN: Denies rash or itching. MUSCULOSKELETAL: Reports pain to right upper arm. NEUROLOGIC: Denies headache, numbness, or weakness. PSYCHIATRIC: Denies anxiety or depression. All other systems reviewed are negative, except as documented in HPI. [facility] Past Medical History Medical History Depression Essential hypertension GERD (gastroesophageal reflux disease) Hypothyroidism Major depressive disorder, recurrent, moderate Mixed hyperlipidemia Obstructive sleep apnea Polysomnogram 11/2018 demonstrated ?extremely severe obstructive sleep apnea treated with CPAP of 15 Surgical History Surgical History H/O sinus surgery History of esophagogastroduodenoscopy (12/2016) Reflux esophagitis, gastritis History of tonsillectomy Normal colonoscopy (09/2018) Family History Family History Sibling , 1 sister and her brother Cerebrovascular accident Diabetes mellitus Mother Diabetes mellitus Hypertension Unilateral renal agenesis End-stage renal disease on hemodialysis Father , At age 83 Dementia Sibling COPD (chronic obstructive pulmonary disease) Unknown Hypertension Social History Social History Social History: She has been for 13 years. She does not have any biologic children. Code status: Full code Surrogate decision maker: Caffeine use: drinks Pepsi daily Smoking status: Never smoker Second hand tobacco smoke exposure: No Alcohol intake: current Alcohol use details: She drinks 1 or 2 alcoholic beverages a month. Substance use: never Substance use type: does not use Additional living arrangements comments: She lives at home with her . They have been since approximately 2010. 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 Gender identity (if verbalized by the patient): Female Sexual Orientation (if Verbalized by the Patient): Straight or Heterosexual Spiritual care concerns: No Comments At time of signature, agree with nursing past medical, surgical, social and fam
[2022-07-14] MEDS: IBUPROFEN 600 MG TABLET PO (11:39)
== END 2022-07-14 12:13 | disposition home or self-care (01) ==
PROVIDERS: Emergency Provider Nurse Practitioner Family; PCP Family Medicine
DX: S42.211A Unspecified displaced fracture of surgical neck of right humerus, initial encounter for closed fracture (principal); W01.0XXA Fall on same level from slipping, tripping and stumbling without subsequent striking against object, initial encounter; I10 Essential (primary) hypertension; K21.9 Gastro-esophageal reflux disease without esophagitis; E03.9 Hypothyroidism, unspecified; E78.2 Mixed hyperlipidemia; G47.33 Obstructive sleep apnea (adult) (pediatric)
CPT/HCPCS: 73030; 73060; 99214; A9270; G0463

== ENCOUNTER 2022-12-23 08:01 | Emergency (ER) | payer BC, SELFPAY ==
--- NOTE | ~2022-12-23 | XR_ITS ---
EXAMINATION: XR chest 2V DATE: 12/23/2022 09:06 INDICATION: Cough and fever. TECHNIQUE: Frontal and lateral views of the chest were obtained. COMPARISON: Chest 2 views 08/24/2019 FINDINGS: There is mild atelectasis in right perihilar region. No pleural effusion or pneumothorax. T he heart size is normal. IMPRESSION: 1. Mild atelectasis in right perihilar region. Reviewed, dictated and finalized at location A.
[2022-12-23 08:25] VITALS: BP 140/53; PULSE 65; RESP 20; TEMP 36.3; O2SAT 92
--- NOTE | 2022-12-23 08:45 | ED.URI ---
HPI - URI/Sore Throat General Chief Complaint: Upper Respiratory Infection Stated Complaint: sorethroat,cough Time Seen by Provider: 12/23/22 08:37 Source: patient and RN notes reviewed Mode of arrival: ambulatory Limitations: no limitations History of Present Illness HPI Narrative: Patient presents today complaining of 5 day history fever up to 101, sore throat, cough, fatigue, body aches, chills, postnasal drip. Last fever was 99.9 yesterday. Denies shortness of breath. She has taken NyQuil a few times and Advil with some relief. Denies history of asthma or COPD. She is a nonsmoker. Related Data Home Medications Medication Instructions Recorded Confirmed [id number]-xaqzpfvs-jeoocbr-folic 1 tablet PO DAILY 08/24/19 12/23/22 acid 400 mcg-vit K1 20 mcg tablet (One-A-Day Women's 50 Plus) Allergies Allergy/AdvReac Type Severity Reaction Status Date / Time azithromycin AdvReac Intermediate GI pain Verified 12/23/22 08:23 Review of Systems Review of Systems: CONSTITUTIONAL: Denies sweats.+ body aches, fever, chills, fatigue EYES: Denies visual changes, redness, or discharge. ENT: Denies rhinorrhea, congestion, or otalgia.+ sore throat, postnasal drip CARDIOVASCULAR: Denies chest pain, palpitations, or edema. RESPIRATORY: Denies dyspnea.+ cough GASTROINTESTINAL: Denies abdominal pain, nausea, vomiting, or diarrhea. GENITOURINARY: Denies dysuria or hematuria. SKIN: Denies rash, itching, or wounds. MUSCULOSKELETAL: Denies back pain, joint pain, or myalgia. NEUROLOGIC: Denies headache, numbness, tingling, or weakness. PSYCH: Denies depression or anxiety. [facility] Past Medical History Medical History Depression Essential hypertension GERD (gastroesophageal reflux disease) Hypothyroidism Major depressive disorder, recurrent, moderate Mixed hyperlipidemia Obstructive sleep apnea Polysomnogram 11/2018 demonstrated ?extremely severe obstructive sleep apnea treated with CPAP of 15 Surgical History Surgical History H/O sinus surgery History of esophagogastroduodenoscopy (12/2016) Reflux esophagitis, gastritis History of tonsillectomy Normal colonoscopy (09/2018) Family History Family History Sibling , 1 sister and her brother Cerebrovascular accident Diabetes mellitus Mother Diabetes mellitus Hypertension Unilateral renal agenesis End-stage renal disease on hemodialysis Father , At age 83 Dementia Sibling COPD (chronic obstructive pulmonary disease) Unknown Hypertension Social History Social History Social History: She has been for 13 years. She does not have any biologic children. Code status: Full code Surrogate decision maker: Caffeine use: drinks Pepsi daily Smoking status: Never smoker Second hand tobacco smoke exposure: No Alcohol intake: current Alcohol use details: She drinks 1 or 2 alcoholic beverages a month. Substance use: never Substance use type: does not use Lack of Transportation: No Lack of Food: Never True Current Housing: I Have Housing Concerned About Future Housing: No Difficulty Paying Gas/Electric Bills: No Difficulty Paying for Meds: No Currently Unemployed: No Education: High School Diploma/GED Difficulty w/ Childcare or Family Care: No Living arrangements: with family Additional living arrangements comments: She lives at home with her . They have been since approximately 2010. 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 Gender identity (if verbalized by the patient): Female Sexual Orientation (if Verbalized by the Patient):
[2022-12-23 09:11] VITALS: PULSE 62; O2SAT 94
== END 2022-12-23 09:24 | disposition home or self-care (01) ==
PROVIDERS: Emergency Provider Nurse Practitioner; PCP Family Medicine
DX: J06.9 Acute upper respiratory infection, unspecified (principal); Z20.822 Contact with and (suspected) exposure to COVID-19; I10 Essential (primary) hypertension; K21.9 Gastro-esophageal reflux disease without esophagitis; E03.9 Hypothyroidism, unspecified; E78.2 Mixed hyperlipidemia; G47.33 Obstructive sleep apnea (adult) (pediatric); F33.9 Major depressive disorder, recurrent, unspecified
CPT/HCPCS: 71046; 87081; 87426; 87880; 99213; C9803; G0463

== ENCOUNTER 2023-08-12 17:41 | Outpatient (CLI) | payer BC, SELFPAY ==
[2023-08-12 19:16] LABS: Free T4 Free Thyroxine 1.09 ng/mL (0.78-2.19)
[2023-08-16 07:46] LABS: Triiodothyronine T3 Free 2.7 pg/mL (2.3-4.2)
== END 2023-08-12 17:42 | disposition home or self-care (01) ==
LOC: ANHLAB 17:43
PROVIDERS: PCP Family Medicine; Visit Provider Physician Assistant
DX: E07.9 Disorder of thyroid, unspecified (principal); E03.9 Hypothyroidism, unspecified
CPT/HCPCS: 36415; 84439; 84443; 84481

== ENCOUNTER 2023-10-21 09:41 | Outpatient (CLI) | payer BC, SELFPAY ==
[2023-10-21 10:05] LABS: Basophils Absolute Auto 0.1 K/mm3 (0.0-0.1); Basophils Percent Auto 1.1 % (0.2-1.2); Eosinophils Absolute Auto 0.4 K/mm3 (0-0.3); Eosinophils Percent Auto 6.1 % (0-4.4); Hemoglobin 14.3 g/dL (12.0-15.0); Immature Granulocyte Absolute 0.02 K/mm3 (0.00-0.031); Immature Granulocyte Percent A 0.3 % (0-0.5); Lymphocytes Percent Auto 27.6 % (18.3-44.2); Mean Corpuscular HGB Conc 31.8 g/dl (32-36); Mean Corpuscular Hemoglobin 29.4 pg (26-34); Mean Corpuscular Volume 92.4 fl (80-100); Mean Platelet Volume 9.4 fl (7.4-10.4); Monocytes Absolute Auto 0.5 K/mm3 (0.1-0.6); Monocytes Percent Auto 7.5 % (2.6-8.5); Neutrophils Absolute Auto 3.7 K/mm3 (1.3-6.7); Neutrophils Percent Auto 57.4 % (45.5-73.1); Platelet Count Result 286 k/mm3 (150-375); Red Blood Count 4.87 M/mm3 (4.2-5.4); Red Cell Distribution Width 12.9 % (11.5-14.5); White Blood Count 6.5 K/mm3 (4.5-10.0)
[2023-10-21 10:19] LABS: Alanine Aminotransferase 31 U/L (6-35); Alkaline Phosphatase 93 U/L (38-126); Anion Gap 7 mmol/L (4-12); Aspartate Amino Transferase 30 U/L (14-36); Bilirubin,Total 0.7 mg/dL (0.2-1.3); Blood Urea Nitrogen 17 mg/dL (7-17); Calcium 9.7 mg/dL (8.4-10.2); Carbon Dioxide 31 mmol/L (22-30); Chloride 103 mmol/L (98-107); Estimated Glomerular Filt Rate > 60; Glucose 103 mg/dL (65-110); Potassium 3.8 mmol/L (3.4-5.0); Sodium 141 mmol/L (137-145)
== END 2023-10-21 09:42 | disposition home or self-care (01) ==
LOC: ANHLAB 09:42
PROVIDERS: PCP Family Medicine; Visit Provider Physician Assistant
DX: E05.80 Other thyrotoxicosis without thyrotoxic crisis or storm (principal); E78.2 Mixed hyperlipidemia; I10 Essential (primary) hypertension
CPT/HCPCS: 36415; 80053; 85025

== ENCOUNTER 2023-10-29 13:24 | Outpatient (CLI) | payer BC, SELFPAY ==
--- NOTE | ~2023-10-29 | MM_ITS ---
EXAMINATION: MM screening [facility] BI w tae HISTORY: Screening TECHNIQUE: Craniocaudal and mediolateral oblique 3-D tomosynthesis images were obtained and synthetic 2-D images were generated. CAD analysis was submitted and interpreted. COMPARISON: Comparison to multiple prior studies sequentially, with oldest reviewed study dated 04/14. BREAST PARENCHYMAL COMPOSITION: Not Dense: Breast are almost entirely fatty. FINDINGS: There is a tissue marker in the lower outer quadrant of the right breast posteriorly, consi stent with previous benign biopsy. There is no evidence of suspicious mass, calcification, or archite ctural distortion to suggest malignancy in either breast. There has been no suspicious interval flood e. IMPRESSION: 1. No mammographic evidence of malignancy. 2. Recommend routine screening mammography in one year. BI-RADS Category 1: Negative Reviewed, dictated and finalized at location B.
== END 2023-10-29 13:25 ==
PROVIDERS: PCP Family Medicine; Visit Provider Physician Assistant
DX: Z12.31 Encounter for screening mammogram for malignant neoplasm of breast (principal)
CPT/HCPCS: 77063; 77067

== ENCOUNTER 2024-01-23 14:33 | Outpatient (CLI) | payer BC, SELFPAY ==
--- NOTE | ~2024-01-23 | XR_ITS ---
EXAMINATION: XR_CERV2-3V_CR DATE: 01/23/2024 14:53 INDICATION: Radiculopathy, cervical region. TECHNIQUE: 3 views of cervical spine were obtained. COMPARISON: None. FINDINGS: Bone alignment is normal. Vertebral body heights are normal. There is interbody fusion at C 3-C4. There is severely decreased disc height at C5-C6 and C6-C7. There is multilevel uncovertebral j oint osteoarthritis, severe bilaterally at C5-C6 and C6-C7. There is multilevel facet joint osteoarth ritis, severe at C7-T1. There is mild central canal stenosis at C5-C6 and C6-C7. No prevertebral soft tissue swelling. IMPRESSION: 1. Severe cervical spondylosis. Reviewed, dictated and finalized at location E.
== END 2024-01-23 14:34 | disposition home or self-care (01) ==
PROVIDERS: PCP Family Medicine; Visit Provider Family Medicine
DX: M47.22 Other spondylosis with radiculopathy, cervical region (principal)
CPT/HCPCS: 72040

== ENCOUNTER 2024-04-05 08:32 | Outpatient (CLI) | payer BC, SELFPAY ==
--- NOTE | ~2024-04-05 | DEXA_ITS ---
Bone Density Report Name: VISHAL QUICK Age: 63 Sex: Female Ethnicity: White Date of : 1960 Indication: postmenopausal; screening for osteoporosis; parental hip fracture; Referring Provider: ANGELINE AVALOS Study: Bone densitometry was performed. Exam Date: April 05, 2024 Accession number: [id number] Bone Density: Region BMD T-score Z-score Classification AP Spine(L1-L4) 0.994 -0.5 1.3 Normal Femoral Neck (Left) 0.743 -1.0 0.6 Normal Total Hip (Left) 0.948 0.0 1.3 Normal Femoral Neck (Right) 0.734 -1.0 0.5 Normal Total Hip (Right) 0.921 -0.2 1.1 Normal Total Hip Mean 0.935 -0.1 1.2 Normal World Health Organization criteria for BMD impression classify patients as: Normal (T-score at or above -1.0), Osteopenia (T-score between -1.0 and -2.5), or Osteoporosis (T-score at or below -2.5). 10-year Fracture Risk: FRAX not reported because: All T-scores for Spine Total, Hip Total, Femoral Neck at or above -1.0 Previous Exams: Region Exam Age BMD T-score BMD Change BMD Change Date g/cm2 vs Baseline vs Previous AP Spine (L1-L4) 04/05/2024 63 0.994 -0.5 -0.074 (-6.9%) -0.074 (-6.9%) 09/01/2023 63 1.067 0.2 Total Hip(Left) 04/05/2024 63 0.948 0.0 0.036 (3.9%)# 0.036 (3.9%)# 09/01/2023 63 0.912 -0.2 Total Hip(Right) 04/05/2024 63 0.921 -0.2 0.029 (3.3%)# 0.029 (3.3%)# 09/01/2023 63 0.892 -0.4 *Denotes significance at 95% confidence level, LSC for AP Spine = 0.022 g/cm2, LSC for Total Hip = 0.027 g/cm2 # Denotes dissimilar scan types or analysis methods Clinical Information Provided by Patient: Parent has had a hip fracture Has used the following medications: Vitamin D Patient maximum height was 63.5 Menopause Age: 48 No regular weight bearing exercise Does not regularly consume dairy products Drinks caffeinated beverages Onset of menses at age 10 Number of children 0 Impression: The patient has normal bone mass. The patient has risk factors, including: parental hip fracture. No significant bone loss was observed. Discussion: BONE DENSITY IS ABOVE THE MINIMUM DESIRABLE LEVEL AT ALL SKELETAL SITES TESTED. This patient?s bone mineral density is above the minimum desirable level (T-score -1.0 or better) at all sites measured. The patient should follow a healthful lifestyle (good nutrition with adequate calcium and vitamin D, and appropriate weight-bearing exercise). Follow-Up: Consider
== END 2024-04-05 08:33 | disposition home or self-care (01) ==
LOC: ANHIMG 08:33
PROVIDERS: PCP Family Medicine; Visit Provider Family Medicine
DX: Z78.0 Asymptomatic menopausal state (principal)
CPT/HCPCS: 77080

== ENCOUNTER 2024-11-03 12:18 | Outpatient (CLI) | payer MEDICARE, OTHER, SELFPAY ==
[2024-11-03 13:39] LABS: Basophils Absolute Auto 0.1 K/mm3 (0.0-0.1); Basophils Percent Auto 1.1 % (0.2-1.2); Eosinophils Absolute Auto 0.4 K/mm3 (0-0.3); Eosinophils Percent Auto 6.7 % (0-4.4); Hematocrit 42.5 % (37.0-47.0); Hemoglobin 13.8 g/dL (12.0-15.0); Immature Granulocyte Absolute 0.01 K/mm3 (0.00-0.031); Immature Granulocyte Percent A 0.2 % (0-0.5); Lymphocytes Absolute Auto 1.73 K/mm3 (0.9-3.2); Lymphocytes Percent Auto 28.2 % (18.3-44.2); Mean Corpuscular HGB Conc 32.5 g/dl (32-36); Mean Corpuscular Hemoglobin 28.7 pg (26-34); Mean Corpuscular Volume 88.4 fl (80-100); Mean Platelet Volume 9.7 fl (7.4-10.4); Monocytes Absolute Auto 0.4 K/mm3 (0.1-0.6); Monocytes Percent Auto 6.9 % (2.6-8.5); Neutrophils Absolute Auto 3.5 K/mm3 (1.3-6.7); Neutrophils Percent Auto 56.9 % (45.5-73.1); Platelet Count Result 281 k/mm3 (150-375); Red Blood Count 4.81 M/mm3 (4.2-5.4); Red Cell Distribution Width 12.6 % (11.5-14.5); White Blood Count 6.1 K/mm3 (4.5-10.0)
[2024-11-03 13:47] LABS: Alanine Aminotransferase 30 U/L (6-35); Albumin Level 4.7 g/dL (3.5-5.1); Alkaline Phosphatase 93 U/L (38-126); Anion Gap 10 mmol/L (4-12); Aspartate Amino Transferase 32 U/L (14-36); Bilirubin,Total 0.6 mg/dL (0.2-1.3); Blood Urea Nitrogen 15 mg/dL (7-17); Calcium 9.3 mg/dL (8.4-10.2); Carbon Dioxide 29 mmol/L (22-30); Chloride 100 mmol/L (98-107); Cholesterol 124 mg/dL (0-200); Estimated Glomerular Filt Rate > 60; Glucose 91 mg/dL (65-110); HDL Direct 51 mg/dL; Potassium 3.9 mmol/L (3.4-5.0); Sodium 139 mmol/L (137-145); Triglycerides 102 mg/dL (<150)
[2024-11-03 13:59] LABS: LDL Cholesterol Direct 46 mg/dL
--- OUTSIDE RECORDS SUMMARY | 2024-11-03 14:00 | XMS_ITS | Encounter Summary ---
Author Organization [facility] Healthcare Address [address] [place] [address] Care Team Providers Care Joinery Setter Out Name Role Phone Unavailable Primary Care Provider Unavailabl e Reason for Visit * Diagnostic Imaging (Routine) - Closed Specialty Diagnoses / Procedures Referred By Contmor t Referred To Contact Procedures Breast Imaging Screening Outside Reference Júnior Garcia MD [address] [address] Phone: tel: fax: Referral ID Status Reason Start Date Expiration Date Visits Re quested Visits Authorized [id number] Closed 05/14/2022 06/13/2023 1 1 Encounter Details Date Type Department Care Team (Late st Contact Info) Description 05/03/2019 Hospital Encounter 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 There will be no report generated by a [facility] Radiologist. Narrative [facility]_MAMMO_[facility] - 05/14/2022 5:53 PM CDT EXAMINATION: Images For Reference Purposes Only us Júnior Garcia MD IMG MAMMO PROCEDURES Final Re sult [facility] documented in this encounter Visit Diagnoses Not on filedocumented in this encounter
--- OUTSIDE RECORDS SUMMARY | 2024-11-03 14:00 | XMS_ITS | Encounter Summary ---
Author Organization [facility] Healthcare Address [address] [place] [address] Care Team Providers Care Graphics Coordinator Name Role Phone Unavailable Primary Care Provider Unavailabl e Reason for Visit * Diagnostic Imaging (Routine) - Closed Specialty Diagnoses / Procedures Referred By Contac t Referred To Contact Procedures Breast Imaging Screening Outside Reference Júnior Garcia MD [address] [address] Phone: tel: fax: Referral ID Status Reason Start Date Expiration Date Visits Re quested Visits Authorized [id number] Closed 05/14/2022 06/13/2023 1 1 Encounter Details Date Type Department Care Team (Late st Contact Info) Description 09/06/2020 Hospital Encounter [facility] Radiology [facility] [address] [place] [address] Social History Tobacco Use Types Packs/Day Years Used Date Smoking Tobacco: Never Assessed Comments Unknown Sex and Gender Information Value Date Recorded Sex Assigned at Not on file 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 Gender Identity Not on file Sexual Orientation Not on file documented as of this encounter Plan of Treatment Not on file documented as of this encounter Procedures Procedure Name Priority Date/Time Associated Diagnosis Comments BREAST IMAGING MG SCREENING OUTSIDE REFERENCE Routine 09/06/2020 12:00 AM CRYOLITE RECOVERY OPERATOR documented in this encounter Results * Breast Imaging Screening Outside Reference (09/06/2020 12:00 AM CRYOLITE RECOVERY OPERATOR) Impressions [facility]MO[facility] - 05/14/2022 5:52 PM CDT These images are for Reference purposes only and have not been reviewed by [facility] Radiology. There will be no report generated by a [facility] Radiologist. Narrative [facility]_MAMMO[facility] - 05/14/2022 5:52 PM CDT EXAMINATION: Images For Reference Purposes Only us Júnior Garcia MD IMG MAMMO PROCEDURES Final Re sult [facility] documented in this encounter Visit Diagnoses Not on filedocumented in this encounter
--- OUTSIDE RECORDS SUMMARY | 2024-11-03 14:00 | XMS_ITS | Referral Summary ---
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
--- OUTSIDE RECORDS SUMMARY | 2024-11-03 14:00 | XMS_ITS | Clinical Summary ---
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 Gender Identity Not on file Sexual Orientation Not on file Obstetrics History Plan of Treatment Health Maintenance Due Date Last Done Comments Breast Cancer Screening-Mammogram 1960 Colon Cancer Screening-Colonoscopy 1960 Depression Screening 1960 Fall Risk Assessment 1960 Hepatitis C Screening 1960 Osteoporosis Screening-Bone Density Scan 1960 DTaP/Tdap/Td Vaccine (1 - Tdap) 1969 Hepatitis B Screening 1976 Pneumococcal vaccine 65+ (1 of 1 - PCV) 2008 Zoster Vaccine (1 of 2) 2008 Well Visit 65+ 2023 Covid-19 Vaccine (5 - 2023-2 5 season) 2024 05/01/2022, 06/02/2021, 10/31/2020, Additional history exists Influenza Vaccine (#1) 2024 , 05/12/2021, 04/18/2020 Insurance BLUE ACCESS OOS BLUE ACCESS OOS Care Teams Trestle Mainternance Laborer Relationship Specialty Start Date End Date Unknown, Notinfile PCP - General 05/23/22
[2024-11-03 14:10] LABS: Free T4 Free Thyroxine 1.29 ng/dL (0.78-2.19)
[2024-11-03 14:18] LABS: Thyroid Stimulating Hormone 0.433 uIU/mL (0.465-4.680)
== END 2024-11-03 12:19 | disposition home or self-care (01) ==
LOC: ANHLAB 12:22
PROVIDERS: PCP Family Medicine; Visit Provider Physician Assistant
DX: E07.9 Disorder of thyroid, unspecified (principal); I10 Essential (primary) hypertension; E78.00 Pure hypercholesterolemia, unspecified
CPT/HCPCS: 36415; 80053; 80061; 84439; 84443; 85025

== ENCOUNTER 2025-06-21 13:33 | Outpatient (CLI) | payer MEDICARE, OTHER, SELFPAY ==
--- NOTE | ~2025-06-21 | MM_ITS ---
EXAMINATION: MM screening [facility] BI w tae HISTORY: Screening. TECHNIQUE: Craniocaudal and mediolateral oblique 3-D tomosynthesis images were obtained and synthetic 2-D images were generated. CAD analysis was submitted and interpreted. COMPARISON: 2023, 2021, and 2020 BREAST PARENCHYMAL COMPOSITION: Not Dense: The breasts are almost entirely fatty FINDINGS: There is a stable small circumscribed nodule posteriorly on the right with an associated biopsy marker. No suspicious masses are seen. There are no suspicious calcifications. No unexplained architectural distortion is seen. There are no skin or nipple abnormalities identified. There is no adenopathy seen on the images submitted. IMPRESSION: No mammographic evidence to suggest malignancy is seen. The patient may return to screening mammography as per ACR guidelines. BI-RADS 2 - Benign. Reviewed, dictated and finalized at location C. COPTER SPECIALIST
== END 2025-06-21 13:34 | disposition home or self-care (01) ==
LOC: MICIMG 13:34
PROVIDERS: PCP Family Medicine; Visit Provider Family Medicine
DX: Z12.31 Encounter for screening mammogram for malignant neoplasm of breast (principal)
CPT/HCPCS: 77063; 77067